=== PATIENT | male | born 1980 | race American Indian/Alaskan Native ===

== ENCOUNTER 2016-10-18 04:34 | Emergency (ER) | payer SELFPAY ==
[2016-10-18 05:01] VITALS: BP 147/96
== END 2016-10-18 09:16 | disposition left against medical advice (07) ==
LOC: ED 04:34
DX: R22.9 Localized swelling, mass and lump, unspecified (principal); Z53.21 Procedure and treatment not carried out due to patient leaving prior to being seen by health care provider

== ENCOUNTER 2022-02-17 19:33 | Emergency (ER) | payer SELFPAY ==
[2022-02-17 20:40] VITALS: BP 114/67
== END 2022-02-17 23:30 | disposition left against medical advice (07) ==
LOC: ED 19:33
DX: R22.0 Localized swelling, mass and lump, head (principal); Z53.21 Procedure and treatment not carried out due to patient leaving prior to being seen by health care provider